=== PATIENT | female | born 1980 | race Hispanic/Latino ===

== ENCOUNTER 2018-02-02 17:10 | Emergency (ER) | payer OTHER ==
[~2018-02-02] VITALS: Ht 170.2 cm; Wt 94.9 kg
[2018-02-02] MEDS ORDERED: ONDANSETRON HCL 4 MG ORAL DISINTEGRATING TAB SL ONE (18:00)
[2018-02-02] MEDS ORDERED: SODIUM CHLORIDE 0.9% 1000ML 1,000 ML ONE (18:00)
[2018-02-02] MEDS ORDERED: KETOROLAC TROMETHAMINE 30 MG/ML VIAL IV STA (19:07)
[2018-02-02] MEDS ORDERED: ZOFRAN ODT4 MG SL (19:13)
== END 2018-02-02 19:42 | disposition home or self-care (01) ==
LOC: FSED 17:10
DX: R11.2 Nausea with vomiting, unspecified (principal); R51 Headache; T67.3XXA Heat exhaustion, anhydrotic, initial encounter
CPT/HCPCS: 80053; 81003; 81025; 99283; J1885; J7030